=== PATIENT | male | born 1955 ===

== ENCOUNTER 2024-05-12 08:30 | Inpatient (IN) | payer OTHER ==
[~2024-05-12] VITALS: Ht 167.6 cm; Wt 84.8 kg
[2024-05-12 09:46] LABS: HEMATOCRIT 43.8 % (39.0-48.0); HEMOGLOBIN 15.1 g/dL (13-16.00); MEAN CELL VOLUME 92.7 fL (80.0-100.00); MEAN CORPUSCULAR HEMOGLOBIN 31.9 pg (27.00-32.0); MEAN CORPUSCULAR HGB CONC 34.4 g/dl (32.0-36.0); PLATELET COUNT 286 K/uL (150-450); RED BLOOD COUNT 4.72 M/uL (4.00-6.00); RED CELL DISTRIBUTION WIDTH 13.5 % (11.5-14.5)
[2024-05-12 09:49] LABS: PH,URINE 5.5 (5.0-8.0); URINE APPEARANCE Clear; URINE BILIRRUBIN Negative (NEGATIVE); URINE BLOOD Negative; URINE COLOR Yellow; URINE GLUCOSE Negative (NEGATIVE); URINE KETONE Negative (NEGATIVE); URINE LEUKOCYTE Negative; URINE NITRATE Negative; URINE PROTEIN Negative (NEGATIVE); URINE UROBILINOGEN 0.2 E.U./dl
[2024-05-12 09:53] LABS: URINE BACTERIA 56.6 uL (0.0-1933); URINE EPITHELIAL CELLS 8.7 uL (0.0-38.8); URINE WBC 8.9 uL (0.0-23.2)
[2024-05-12 10:11] LABS: INR 1.05; PARTIAL THROMBOPLASTIN TIME 28.7 SECONDS (22.0-34.0); PROTHROMBIN TIME 11.4 SECONDS (9.0-11.5)
[2024-05-12 10:27] LABS: ALBUMIN 3.9 gm/dL (3.4-5.0); BILIRUBIN TOTAL 0.63 mg/dL (0.3-1.2); CALCIUM 9.1 mg/dL (8.5-10.1); CREATININE SERUM 0.76 mg/dL (0.70-1.30); GFR 101.99; GLOBULINA 3.7 G/DL (2.4-3.5); POTASSIUM 4.24 mEq/L (3.5-5.1); TOTAL PROTEIN 7.6 gm/dL (6.4-8.2)
[2024-05-19] MEDS ORDERED: ONDANSETRON HCL 2 MG/ML VIAL IV PRN (12:30)
[2024-05-19] MEDS ORDERED: CEFAZOLIN SODIUM 1,000 MG VIAL IV SCH ×2 (14:00→14:45)
[2024-05-19] MEDS ORDERED: OxyCODONE HCL/APAP UD (PERCOCET) PO PRN (14:00)
[2024-05-19] MEDS ORDERED: MORPHINE SULFATE 4 MG/ML CARTRIDGE IV SCH (14:00)
[2024-05-19] MEDS ORDERED: BUPIVACAINE HCL 30 ML VIAL IJ ONE (14:45)
[2024-05-19] MEDS ORDERED: LIDOCAINE HCL 1% 20ML VIAL IJ ONE (14:45)
[2024-05-19] MEDS ORDERED: VANCOMYCIN HCL 1,000 MG VIAL IR ONE (15:00)
[2024-05-19] MEDS ORDERED: KETOROLAC TROMETHAMINE 60 MG VIAL IM ONE (15:00)
[2024-05-19] MEDS ORDERED: MORPHINE SULFATE 4 MG/ML VIAL IV ONE ×3 (15:00→17:30)
[2024-05-19] MEDS ORDERED: GABAPENTIN 100 MG CAPSULE PO SCH (21:00)
[2024-05-19] MEDS ORDERED: ORPHENADRINE CITRATE 100 MG TABLET PO SCH (21:00)
[2024-05-19 21:39] VITALS: BP 109/63; O2SAT 98
[2024-05-20] VITALS: BP 150/69; O2SAT 95
[2024-05-20] MEDS ORDERED: APIXABAN 2.5 MG TABLET PO SCH (05:00)
[2024-05-20 07:14] LABS: HEMOGLOBIN 13.2 g/dL (13-16.00); MEAN CELL VOLUME 92.4 fL (80.0-100.00); MEAN CORPUSCULAR HEMOGLOBIN 32.1 pg (27.00-32.0); MEAN CORPUSCULAR HGB CONC 34.7 g/dl (32.0-36.0); PLATELET COUNT 214 K/uL (150-450); RED BLOOD COUNT 4.12 M/uL (4.00-6.00); RED CELL DISTRIBUTION WIDTH 13.5 % (11.5-14.5)
[2024-05-20 09:30] VITALS: BP 132/72; O2SAT 92
[2024-05-20] MEDS ORDERED: SIMVASTATIN10 MG PO (14:44)
[2024-05-20 17:00] VITALS: BP 129/71; O2SAT 99
[2024-05-20] MEDS ORDERED: Cyanocobalamin/Mecobalamin 1 TAB.SL SL SCH (17:00)
[2024-05-20] MEDS ORDERED: IRON FUM,PS/FOLIC ACID/VITC/B3 1 CAP CAPSULE PO SCH (17:00)
[2024-05-20] MEDS ORDERED: THIAMINE HCL 100 MG TABLET PO SCH (17:00)
[2024-05-20] MEDS ORDERED: VITAMIN B COMPLEX 1 EACH PO SCH (17:00)
[2024-05-21] VITALS: BP 153/62; O2SAT 95
[2024-05-21 09:53] VITALS: BP 169/79; O2SAT 97
[2024-05-21 12:25] LABS: HEMATOCRIT 39.6 % (39.0-48.0); HEMOGLOBIN 13.4 g/dL (13-16.00); MEAN CELL VOLUME 92.9 fL (80.0-100.00); MEAN CORPUSCULAR HEMOGLOBIN 31.4 pg (27.00-32.0); MEAN CORPUSCULAR HGB CONC 33.8 g/dl (32.0-36.0); PLATELET COUNT 235 K/uL (150-450); RED BLOOD COUNT 4.26 M/uL (4.00-6.00); RED CELL DISTRIBUTION WIDTH 13.3 % (11.5-14.5)
== END 2024-05-21 14:03 | DRG 470 ==
LOC: O/R 05-19 06:34 → SURH 05-19 06:34 → O/R 05-19 14:16 → SURH 05-19 18:57
PROVIDERS: Internal Medicine Hematology & Oncology; ADMIT Orthopaedic Surgery; ATTEND Orthopaedic Surgery
PROC: 0SRD0JZ Replacement of Left Knee Joint with Synthetic Substitute, Open Approach (ICD-10-PCS; principal; 2024-05-19 07:00)
DX: M17.12 Unilateral primary osteoarthritis, left knee (principal); D62 Acute posthemorrhagic anemia; M85.662 Other cyst of bone, left lower leg